=== PATIENT | male | born 1985 | race Caucasian/White ===

== ENCOUNTER 2018-04-13 14:18 | Emergency (ER) | payer OTHER ==
[2018-04-13 14:33] VITALS: BP 126/83; PULSE 97; RESP 16; TEMP 99.6; O2SAT 98
[2018-04-13] MEDS ORDERED: guaiFENesin 200 mg/10 ml Syrup UD PO STA (16:25)
--- NOTE | 2018-04-13 17:15 | RAD ---
Date of service: 04/13/2018 HISTORY: Cough and fever COMPARISON: No prior. TECHNIQUE: Chest PA and lateral FINDINGS: LINES AND TUBES: None. LUNG AND PLEURA: The lungs are well inflated and clear. No pleural effusion or pneumothorax. HEART AND MEDIASTINUM: The heart is not enlarged. No aortic atherosclerotic calcification present. The hilar and mediastinal contours are within normal limits. SKELETAL STRUCTURES: The bony structures are within normal limits for the patient's age. VISUALIZED UPPER ABDOMEN: Normal. OTHER FINDINGS: None. IMPRESSION: No active pulmonary disease.
--- NOTE | 2018-04-13 17:34 | ED PDOC ---
HPI: Influenza Time Seen by Provider: 04/13/18 15:52 Chief Complaint: Cough, Cold, Congestion Chief Complaint (Provider): Cough, Cold, Congestion History Per: Patient Exam Limitations: no limitations Symptoms include: fever, sore throat, cough. denies: vomiting, diarrhea, syncope, chest pain, difficulty breathing Sick Contacts (Context): None Additional complaint(s):: Patient is a 33 year old male who complains of dry cough associated with sore throat and subjective fever since last night. Patient states he did not take his temperature but he did feel warm. He reports he has right sided throat pain and that he last took aspirin today at 1pm. Otherwise: (-) chest pain, (-) dyspnea, (-) hemoptysis, (-) upper back pain, (-) travel, (-) recent prolonged immobility (-) ear pain (-) abdominal pain (-) N/V/D (-) dizziness (-) headache (-) neck pain. PMD: No provider Past Medical History Reviewed: Historical Data, Nursing Documentation, Vital Signs Vital Signs: Last Vital Signs Temp 99.6 F 04/13/18 14:31 Pulse 97 H 04/13/18 14:31 Resp 16 04/13/18 14:31 BP 126/83 04/13/18 14:31 Pulse Ox 98 04/13/18 14:31 - Medical History PMH: No Chronic Diseases - Surgical History Surgical History: No Surg Hx - Family History Family History: States: Unknown Family Hx - Social History Current smoker - smoking cessation education provided: No Ex-Smoker (has not smoked in the last 12 months): No Alcohol: Social Drugs: Denies - Home Medications Home Medications: Ambulatory Orders Medication Instructions Recorded RX: Naproxen 500 mg PO BID PRN #20 tab 04/13/18 RX: Promethazine DM [Phenergan DM 5 ml PO Q6 PRN #150 ml 04/13/18 Syrup] - Allergies Allergies/Adverse Reactions: Allergies Allergy/AdvReac Type Severity Reaction Status Date / Time No Known Allergies Allergy Verified 04/13/18 14:32 Review of Systems ROS Statement: Except As Marked, All Systems Reviewed And Found Negative Constitutional: Positive for: Fever, Chills ENT: Positive for: Throat Pain Respiratory: Positive for: Cough. Negative for: Shortness of Breath Gastrointestinal: Negative for: Nausea, Vomiting, Abdominal Pain, Diarrhea Physical Exam - Reviewed Nursing Documentation Reviewed: Yes Vital Signs Reviewed: Yes - Physical Exam Comments: GENERAL APPEARANCE: Patient is awake, alert, oriented x 3, in no acute distress, resting comfortably. SKIN: Warm, dry; (-) cyanosis. EYES: (-) conjunctival pallor. ENMT: TMs: non bulging and non erythmatous. Mucous membranes moist. Nares are patent (-) rhinorrhea. Airway patent: (-) stridor. Pharynx: clear, uvula midline (+) erythema, (-) exudate (+) Oral ulceration measuring 3mm by 3mm to the posterior right pharanx x1. NECK: Supple; FROM (-) tenderness, (-) stiffness, (-) lymphadenopathy. CHEST AND RESPIRATORY: (-) rhonchi, (-) rales, (-) wheezes; breath sounds equal bilaterally. Respirations even and nonlabored. HEART AND CARDIOVASCULAR: (-) irregularity ABDOMEN AND GI: Soft; (-) tenderness (-) guarding (- )distention. EXTREMITIES: (-) deformity NEURO AND PSYCH: Mental status as above. Cranial nerves grossly intact; stren gth symmetric. Gait: steady. Speech: clear. (-) facial asymmetry Medical Decision Making Medical Decision Making: Time: 16:05 Impression: fever, sore throat and cough Plan: --Chest x-ray --Tylenol 650 mg PO --Robitussin 200 mg PO --Throat culture --Influenza A B --Rapid strep 17:10 CXR reviewed, radiology report follows Chest x-ray FINDINGS: LINES AND TUBES: None. LUNG AND PLEURA: The lungs are well inflated and clear. No pleural effusion or pneumothorax. HEART AND MEDIASTINUM: The heart is not enlarged. No aortic atherosclerotic calcification present. The hilar and mediastinal contours are within normal limits. SKELETAL STRUCTURES: The bony structures are within normal limits for the patient's age. VISUALIZED UPPER ABDOMEN: Normal. OTHER FINDINGS: None. IMPRESSION: No active pulmonary disease. 1830 Rapid Strep: Negative Influenza: Negative 1915 On re-evaluation, patient reports improvement of symptoms. On exam, patient remains AAOx3, in no acute distress. Vitals stable. Lab/Diagnostic results d/w the patient in great detail. Diagnosis of cough, viral pharyngitis d/w the patient. Based on history, exam and diagnostic results, plan will be for outpatient follow up with clinic. Patient instructed to follow-up with pmd / referral provided / the clinic in 1- 2 days without fail. Advised to take medication as prescribed. Return to the emergency room at any time for any new or worsening symptoms. Patient states he fully agrees with and understands discharge instructions. States that he agrees with the plan and disposition. Verbalized and repeated discharge instructions and plan. I have given the patient opportunity to ask any additional questions. Scribe Attestation: Documented by Luis Smiht, acting as a scribe for Antonina Wei Provider Scribe Attestation: All medical record entries made by the Scribe were at my direction and personally dictated by me. I have reviewed the chart and agree that the record accurately reflects my personal performance of the history, physical exam, medical decision making, and the department course for this patient. I have also personally directed, reviewed, and agree with the discharge instructions and disposition. - ECG O2 Sat by Pulse Oximetry: 98 (RA) Pulse Ox Interpretation: Normal Disposition - Clinical Impression Clinical Impression: Cough, Viral pharyngitis - Patient ED Disposition Is Patient to be Admitted: No Counseled Patient/Family Regarding: Studies Performed, Diagnosis, Need For Followup, Rx Given - Disposition Referrals: [facility] [Outside] Disposition: Routine/Home Disposition Time: 19:15 Condition: STABLE Additional Instructions: The emergency medical care you received today was directed at your acute symptoms. If you were prescribed any medication, please fill it and take as directed. It may take several days for your symptoms to resolve. Return to the Emergency Department if your symptoms worsen, do not improve, or if you have any other problems. Please contact your doctor in 2 days for re-evaluation and follow up / or call one of the physicians/clinics you have been referred to that are listed on the Patient Visit Information form that is included in your discharge packet. Bring any paperwork you were given at discharge with you along with any medications you are taking to your follow up visit. Our treatment cannot replace ongoing medical care by a primary care provider (PCP) outside of the emergency department. Prescriptions: RX: Naproxen 500 mg PO BID PRN #20 tab PRN Reason: Pain, Moderate (4-7) RX: Promethazine DM [Phenergan DM Syrup] 5 ml PO Q6 PRN #150 ml PRN Reason: Cough Instructions: Viral Pharyngitis, Cough in Adults, Sore Throat in Adults, Cough, Runny Nose, and the Common Cold Forms: [employer] (Finnish) Print Language: POLISH - POA Present On Arrival: None Results - Diagnostic Imaging Results Radiology Results Chest X-Ray 04/13/18 16:05 IMPRESSION: No active pulmonary disease. - Lab Results Lab Results: 04/13/18 04/13/18 17:10 17:10 Influenza Typ A,B (EIA) Negative for flu a/b Grp A Beta Strep Ag Negative
[2018-04-13] MEDS ORDERED: guaiFENesin 100 mg/5 ml Syrup UD ONE (18:44)
[2018-04-13] MEDS ORDERED: guaiFENesin 100 mg/5 ml Syrup UD PO STA (18:48)
== END 2018-04-13 19:51 | disposition home or self-care (01) ==
LOC: H.ER 14:18
DX: R05 Cough (principal); J02.9 Acute pharyngitis, unspecified